=== PATIENT | male | born 1990 | race Hispanic/Latino ===

== ENCOUNTER 2017-11-27 12:13 | Emergency (ER) | payer OTHER ==
[~2017-11-27] VITALS: Ht 180.3 cm; Wt 99.8 kg
--- OUTSIDE RECORDS SUMMARY | 2017-11-27 12:16 | XMS REPORT | Clinical Summary ---
Author Author [facility] Organization [facility] Address Unknown Phone Unavailable Care Team Providers Care General Superintendent Name Role Phone Asked, Pcp PCP Unavailable Allergies No Known Allergies Current Medications Prescription Sig. Disp. Refills Start End Date Status Date sertraline (ZOLOFT) 100 TAKE TWO (2) TABLET(S) BY 99 01/23/20 Active MG tablet MOUTH EVERY MORNING. 17 cyclobenzaprine Take 1 tablet (10 mg 20 tablet 0 02/16/20 02/21/20 (FLEXERIL) 10 mg tablet total) by mouth 2 (two) 17 17 times a day as needed for muscle spasms for up to 5 days. traMADol (ULTRAM) 50 mg Take 1 tablet (50 mg 24 tablet 0 02/16/20 tablet total) by mouth every 6 17 17 (six) hours as needed for moderate pain for up to 6 days. Active Problems Not on file Encounters Date Type Specialty Care Team Description 02/15/2017 Emergency Emergency Medicine Waqas Hernandez II, Contusion, knee and lower PLACEMENT MANAGER leg, left, initial Cesar Bonilla MD encounter (Primary Dx); Acute bilateral low back pain without sciatica after 11/26/2016 Social History Tobacco Use Types Packs/Day Years Used Date Never Smoker Alcohol Use Drinks/Week oz/Week Comments No Sex Assigned at Date Recorded Not on file Last Filed Vital Signs Vital Sign Reading Time Taken Blood Pressure 118/74 02/15/2017 11:30 PM CDT Pulse 65 02/15/2017 11:30 PM CDT Temperature 36.9 C (98.5 F) 02/15/2017 6:37 PM CDT Respiratory Rate 18 02/15/2017 11:30 PM CDT Oxygen Saturation 99% 02/15/2017 11:30 PM CDT Inhaled Oxygen - - Concentration Weight 97.5 kg (215 lb) 02/15/2017 6:36 PM CDT Height 175.3 cm (5' 9") 02/15/2017 6:36 PM CDT Body Mass Index 31.75 02/15/2017 6:36 PM CDT Plan of Treatment Health Maintenance Due Date Last Done Comments INFLUENZA VACCINE 02/23/2018 Results * XR Knee 1 Or 2 Vw Left (02/15/2017 7:25 PM) Specimen Performing Laboratory [facility] [address] [place] [address] Narrative EXAMINATION: XR KNEE 1 OR 2 VW LEFT CLINICAL HISTORY: BONE PAINKNEE COMPARISON: None. FINDINGS: Mineralization is normal. Joint spaces are maintained. There is no fracture, subluxation or periosteal reaction. Joint effusion is not seen. IMPRESSION: Normal left knee. [id number] Procedure Note Hm Interface, Radiology Results Incoming - 02/16/2017 4:56 PM CDT EXAMINATION: XR KNEE 1 OR 2 VW LEFT CLINICAL HISTORY: BONE PAIN KNEE COMPARISON: None. FINDINGS: Mineralization is normal. Joint spaces are maintained. There is no fracture, subluxation or periosteal reaction. Joint effusion is not seen. IMPRESSION: Normal left knee. [id number] after 11/26/2016 Insurance Payer Benefit Subscriber ID Type Phone Address Plan / Group COMMERCIAL MISC MISC xxxxxxxxx Commercial COMMERCIAL Liability PINO,[id number] Personal/F Self 1990 Home: [address] [place] [place] [address]
[2017-11-27] MEDS ORDERED: FAMOTIDINE 20 MG/2 ML VIAL IV STA (12:59)
[2017-11-27] MEDS ORDERED: ONDANSETRON HCL INJ 2 MG/ML VIAL IV STA (12:59)
[2017-11-27] MEDS ORDERED: DICYCLOMINE HCL 20 MG TAB PO ONE (13:00)
[2017-11-27] MEDS ORDERED: SODIUM CHLORIDE 0.9% 1000ML 1,000 ML IV SCH (13:00)
[2017-11-27 13:56] LABS: BASOPHILS % 0.2 % (0.0-1.0); EOSINOPHILS # (AUTO) 0.2 (0.0-0.4); EOSINOPHILS % 2.1 % (0.0-6.0); HEMATOCRIT 47.1 % (38.2-49.6); LYMPHOCYTES # (AUTO) 0.6 (1.0-3.2); LYMPHOCYTES % 6.4 % (18.0-39.1); MEAN CORPUSCULAR HEMOGLOBIN 30.9 pg (28-32); MEAN CORPUSCULAR VOLUME 90.9 fL (81-99); MONOCYTES # (AUTO) 0.5 (0.2-0.8); MONOCYTES % 5.6 % (4.4-11.3); NEUTROPHILS % 85.4 % (38.7-80.0); PLATELET COUNT 244 x10e3/uL (140-360); RED BLOOD COUNT 5.18 x10e6/uL (4.3-5.7); RED CELL DISTRIBUTION WIDTH 12.7 % (11.7-14.4)
[2017-11-27] MEDS ORDERED: KETOROLAC TROMETHAMINE 30 MG/ML VIAL IV STA (14:36)
== END 2017-11-27 16:00 | disposition home or self-care (01) ==
LOC: FSED 12:13
DX: R10.84 Generalized abdominal pain (principal); R19.7 Diarrhea, unspecified; A08.4 Viral intestinal infection, unspecified
CPT/HCPCS: 36415; 74177; 80053; 81003; 85025; 99284; J1885; J2405

== ENCOUNTER 2021-07-17 01:47 | Emergency (ER) | payer OTHER ==
[~2021-07-17] VITALS: Ht 177.8 cm; Wt 122.5 kg
== END 2021-07-17 02:15 | disposition home or self-care (01) ==
LOC: ER 01:51
DX: U07.1 COVID-19 (principal); R09.81 Nasal congestion; F17.210 Nicotine dependence, cigarettes, uncomplicated
CPT/HCPCS: 99282

== ENCOUNTER → 2022-05-06 | Day surgery (SDC) | payer OTHER ==
[~2022-05-06] MED LIST: LIDOCAINE HCL 2% LOCAL INJ 5 ML SDV VIAL INJ ONE; PROPOFOL IV EMULSION 10 MG/ML 20 ML VIAL IV ONE; REXULTI2 MG PO; ZOLOFT100 MG PO
[2022-05-06 11:35] VITALS: BP 135/79
== END | disposition home or self-care (01) ==
LOC: ENDO 08:28
PROVIDERS: ATTEND Internal Medicine Gastroenterology
DX: K52.9 Noninfective gastroenteritis and colitis, unspecified (principal); K63.3 Ulcer of intestine; K57.30 Diverticulosis of large intestine without perforation or abscess without bleeding; K64.8 Other hemorrhoids; Z71.3 Dietary counseling and surveillance; F41.9 Anxiety disorder, unspecified; F32.A Depression, unspecified; R03.0 Elevated blood-pressure reading, without diagnosis of hypertension; Z71.89 Other specified counseling; F17.210 Nicotine dependence, cigarettes, uncomplicated; Z79.899 Other long term (current) drug therapy; Z68.39 Body mass index [BMI] 39.0-39.9, adult; Z87.19 Personal history of other diseases of the digestive system
CPT/HCPCS: 45380; J2001; J2704; 45378